=== PATIENT | female | born 2005 | race Caucasian/White ===

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

== ENCOUNTER 2024-02-09 14:02 | Emergency (ER) | payer OTHER, SELFPAY ==
[2024-02-09 14:27] VITALS: BP 134/58; PULSE 88; RESP 20; TEMP 36.6; O2SAT 98; BMI 42.3
== END 2024-02-09 16:52 | disposition left against medical advice (07) ==
PROVIDERS: Emergency Provider Emergency Medicine
DX: M79.10 Myalgia, unspecified site (principal)
CPT/HCPCS: 99281

== ENCOUNTER 2024-07-10 08:23 | Outpatient (AMB) | payer OTHER, SELFPAY ==
--- NOTE | 2024-07-10 08:58 | MHC.OFFWIV ---
Intake Vital Signs 07/10/24 09:05 Weight 230 lb BP 108/70 Blood Pressure Location Lt brachial Position Sitting Pulse 103 H Pulse Source Pulse Oximeter Temp 98.7 F Temp Source Oral Pulse Oximetry (%) 98 Oxygen Delivery Method Room Air Intake Visit Reasons: EP-cough, migraine, fever, chills Intake Note: Patient here for cough, SOB, chest pain, chills, fever and migraine that started about 1 week ago now. Patient Tobacco Use Status: Never used Tobacco Allergies No Known Allergies Allergy (Verified 07/10/24 08:58) Do you need a note to return to daycare/school/sports/work: Yes HPI HPI Comments History of Present Illness Details This is a 19-year-old female with no stated past medical history presenting for evaluation of cough, headaches, nausea, vomiting and body aches that she has had for the past 1 week. Patient has been taking DayQuil only without relief of her symptoms. Patient denies having any fevers, chest pain, shortness for breath or abdominal pain. REPLACED BY [facility] Medical History (Updated 07/10/24 @ 09:33 by Gwendolyn Mendez PA-C) Morbid obesity Back spasm Dysmenorrhea Depression Anxiety Obesity ADHD (attention deficit hyperactivity disorder), inattentive type STD (female) Surgical History Hx of tonsillectomy Family History Paternal Aunt Diabetes Mother Overdose Mental health disorder Substance use disorder Father Mental health disorder Social History Household Members: Other Household Members Other:: lives w/ dad, sibs, stepmother-who has ALS. dad overwhelmed w/her care&work Housing: House Alcohol intake: current Patient Tobacco Use Status: Never used Tobacco e-Cigarette/Vaping Use: Currently Using Substance Use Type: Marijuana service: No Current occupational status: unemployed Sexual orientation: Straight/Heterosexual Gender identity: Female Cognitive needs: No Hearing needs: No Vision needs: Yes Female Reproductive History Menstrual Age of Menarche: 10 Review of Systems Const All systems reviewed & are unremarkable except as noted in HPI and below Eyes Reports no additional complaints ENT Reports no additional complaints, Denies otalgia, Denies facial pain and Denies sinus pressure Card Reports no additional complaints, Denies chest pain and Denies dyspnea Resp Reports chest congestion, Reports cough and Denies dyspnea GI Reports no additional complaints Reports no additional complaints Musc Reports no additional complaints Skin/Breast Reports system reviewed and no additional complaints, except as documented Neuro Reports no additional complaints Psych Reports no additional complaints Endo Reports no additional complaints Adrián/Lymph Reports no additional complaints Aller/Immun Reports no additional complaints Physical Exam Vital Signs: Last Vital Signs Temp 98.7 F 07/10/24 09:05 Pulse 103 H 07/10/24 09:05 BP 108/70 07/10/24 09:05 Pulse Ox 98 07/10/24 09:05 Oxygen Delivery Method Room Air 07/10/24 09:05 Patient is afebrile and tachycardic Const General: cooperative, healthy appearing, no acute distress, alert, awake and Physically active Nutritional Appearance: obese Orientation/consciousness: patient oriented x3 Limitations: no limitations HEENT Head: Yes normal to inspection and Yes normocephalic Ears: hearing grossly normal bilaterally, external ears normal, TM's abnormal bilaterally (TMs bulging without erythema) and EAC's normal General nose exam: Normal external nose present Face and sinus: Yes normal facial exam and Yes sinuses nontender Mouth: Normal oral and palatal mucosa present and oropharynx normal Throat: Yes posterior oropharynx normal and Yes postnasal drainage Eyes General: appearance normal, both eyes and all related structures Neck Lymphatic: no lymphadenopathy noted Resp Effort & Inspection: normal respiratory effort, no audible wheezes, no cough and not tachypneic Auscultation: clear to auscultation bilaterally Cardio Rate: tachycardic Rhythm: regular rhythm Skin General skin exam: no rashes or lesions noted Neuro General: patient oriented x3 Psych Appearance: grossly normal Mental Status: mental status grossly normal Insight: Good insight present (Psych) Judgement: Good judgement present (Psych) Assessment & Plan Assessment & Plan (1) Acute upper respiratory infection: Comment: SARS panel is obtained and results are pending. Code(s): J06.9 - Acute upper respiratory infection, unspecified Plan: Mucinex OTC with increase clear fluids daily, Tylenol or ibuprofen as needed for myalgias. Orders: Orders SARS-CoV2/FLU/RSV Today J06.9 - Acute upper respiratory infection, unspecified Coding Level of Care Code Est Pt Level 3 (00500) Diagnoses Acute upper respiratory infection J06.9 Time Spent (min) 20
[2024-07-10 09:05] VITALS: BP 108/70; PULSE 103; TEMP 37.1; O2SAT 98
== END 2024-07-10 09:28 | disposition home or self-care (01) ==
PROVIDERS: Visit Provider Physician Assistant
DX: J06.9 Acute upper respiratory infection, unspecified (principal)

== ENCOUNTER 2024-07-10 08:23 | Outpatient (REF) | payer OTHER, SELFPAY ==
[2024-07-10 11:01] LABS: Influenza A PCR POSITIVE (Negative); Influenza B PCR NEGATIVE (Negative); Resp Syncy Virus RNA Qual PCR NEGATIVE (Negative); SARS COV2 PCR INHOUSE NEGATIVE (Negative)
--- OUTSIDE RECORDS SUMMARY | 2024-07-10 11:07 | XMS_ITS | Encounter Summary ---
Author Organization [facility] Address [address] [place] [address] Phone Care Team Providers Care Coagulator Name Role Phone William Ochoa MD Primary Care Provider [phone] Encounter Details Date Type Department Care Team (Late st Contact Info) Description 05/11/2011 Documentation [facility] [place] Family Medicine [address] [place] [address] Family Medicine, Physician [address] [place], [place] [phone] Social History Tobacco Use Types Packs/Day Years Used Date Smoking Tobacco: Never Assessed Comments Unknown Sex and Gender Information Value Date Recorded Sex Assigned at Not on file Legal Sex Female 4:39 PM EDT Gender Identity Not on file Sexual Orientation Not on file documented as of this encounter Plan of Treatment Not on file documented as of this encounter Visit Diagnoses Not on filedocumented in this encounter Care Teams Coagulator Relationship Specialty Start Date End Date William Ochoa MD [address] [place] [address] [place] [address] PCP - General 01/07/17 09/23/22 documented as of this encounter
--- OUTSIDE RECORDS SUMMARY | 2024-07-10 11:07 | XMS_ITS | Encounter Summary ---
Author Organization [facility] Address [address] [place] [address] Phone Care Team Providers Care Programmer Analyst Consultant Name Role Phone William Ochoa MD Primary Care Provider [phone] Encounter Details Date Type Department Care Team (Late st Contact Info) Description 11/10/2010 Documentation [facility] [address] [place] [address] Family Medicine, Physician [address] [place], [place] [phone] Social History Tobacco Use Types Packs/Day Years [...] on filedocumented in this encounter Care Teams Programmer Analyst Consultant Relationship Specialty Start Date End Date William Ochoa MD [address] [place] [address] [place] [address] PCP - General 01/07/17 09/23/22 documented as of this encounter
--- OUTSIDE RECORDS SUMMARY | 2024-07-10 11:07 | XMS_ITS | Encounter Summary ---
Author Organization [facility] Address [address] [place] [address] Phone Care Team Providers Care Lift Team Technician Name Role Phone William Ochoa MD Primary Care Provider [phone] Encounter Details Date Type Department Care Team (Late st Contact Info) Description 11/10/2010 Documentation [facility] [address] [place] [address] Family Medicine, Physician [address] [place], [place] [phone] Social History Tobacco Use Types Packs/Day Years [...] on filedocumented in this encounter Care Teams Lift Team Technician Relationship Specialty Start Date End Date William Ochoa MD [address] [place] [address] [place] [address] PCP - General 01/07/17 09/23/22 documented as of this encounter
--- OUTSIDE RECORDS SUMMARY | 2024-07-10 11:07 | XMS_ITS | Encounter Summary ---
Author Organization [facility] Address [address] [place] [address] Phone Care Team Providers Care Lunchroom Worker Name Role Phone William Ochoa MD Primary Care Provider [phone] Encounter Details Date Type Department Care Team (Late st Contact Info) Description 05/11/2011 Documentation [facility] [place] [address] [place] [address] Family Medicine, Physician [address] [place], [place] [phone] Social History Tobacco Use Types Packs/Day Years [...] on filedocumented in this encounter Care Teams Lunchroom Worker Relationship Specialty Start Date End Date William Ochoa MD [address] [place] [address] [place] [address] PCP - General 01/07/17 09/23/22 documented as of this encounter
--- OUTSIDE RECORDS SUMMARY | 2024-07-10 11:07 | XMS_ITS | Encounter Summary ---
Author Organization [facility] Address [address] [place] [address] Phone Care Team Providers Care Painter Helper Name Role Phone William Ochoa MD Primary Care Provider [phone] Encounter Details Date Type Department Care Team (Late st Contact Info) Description 2017 Conversion Encounter [facility] [address] [place] [address] Social History Tobacco Use Types Packs/Day Years [...] on filedocumented in this encounter Care Teams Painter Helper Relationship Specialty Start Date End Date William Ochoa MD [address] [place] [address] PCP - General 01/07/17 09/23/22 documented as of this encounter
--- OUTSIDE RECORDS SUMMARY | 2024-07-10 11:07 | XMS_ITS | Encounter Summary ---
Author Organization [facility] Address [address] [place] [address] Phone Care Team Providers Care Feeder Associate Name Role Phone William Ochoa MD Primary Care Provider Encounter Details Date Type Department Care Team (Late st Contact Info) Description 06/30/2011 Documentation [facility] [place] [address] [place] [address] Family Medicine, Physician [address] [place], [place] [phone] Social History Tobacco Use Types Packs/Day Years [...] on filedocumented in this encounter Care Teams Feeder Associate Relationship Specialty Start Date End Date William Ochoa MD [address] [place] [address] [place] [address] PCP - General 01/07/17 09/23/22 documented as of this encounter
--- OUTSIDE RECORDS SUMMARY | 2024-07-10 11:07 | XMS_ITS | Encounter Summary ---
Author Organization [facility] Address [address] [place] [address] Phone Care Team Providers Care Security Flex Officer Name Role Phone William Ochoa MD Primary Care Provider [phone] Encounter Details Date Type Department Care Team (Late st Contact Info) Description 11/10/2010 Documentation [facility] [address] [place] [address] Family Medicine, Physician [address] [place], [place] [phone] Social History Tobacco Use Types Packs/Day Years [...] on filedocumented in this encounter Care Teams Security Flex Officer Relationship Specialty Start Date End Date William Ochoa MD [address] [place] [address] [place] [address] PCP - General 01/07/17 09/23/22 documented as of this encounter
--- OUTSIDE RECORDS SUMMARY | 2024-07-10 11:07 | XMS_ITS | Encounter Summary ---
Author Organization [facility] Address [address] [place] [address] Phone Care Team Providers Care Radio Disc Jockey Name Role Phone William Ochoa MD Primary Care Provider [phone] Encounter Details Date Type Department Care Team (Late st Contact Info) Description 05/11/2011 Documentation [facility] [place] Family Medicine [address] [place] [address] Family Medicine, Physician [address] [place], [place] [phone] Social History Tobacco Use Types Packs/Day Years [...] on filedocumented in this encounter Care Teams Radio Disc Jockey Relationship Specialty Start Date End Date William Ochoa MD [address] [place] [address] [place] [address] PCP - General 01/07/17 09/23/22 documented as of this encounter
--- OUTSIDE RECORDS SUMMARY | 2024-07-10 11:07 | XMS_ITS | Clinical Summary ---
Author Organization [facility] Address [address] [place] [address] Phone Care Team Providers Care Hydrometer Calibrator Name Role Phone Unavailable Primary Care Provider Unavailabl e Immunizations Immunization Administration Dates Next Due DTaP / Hep B / IPV 2004,2004, 004 DTaP 5 09/17/2008,07/30/2005 H1N1 03/24/2009 Hep B, ped/adol 2004 Hib (HbOC) 04/19/2005,2004,2004 ,2004 IPV 09/17/2008 Influenza Split 03/10/2010,01/19/2010 Influenza, injectable, trivalent 06/24/2008,12/0 08/2006,04/19/2005 MMR 09/17/2008,01/15/2005 Pneumococcal Conjugate 04/19/2005,2004,,2004 Varicella 09/17/2008,01/15/2005 Family History Relation Name Status Comments Brother Alive Brother: Alive and well Father Alive Father: Alive a nd well Maternal Grandfather Materna l grandfather: vit k deficency Maternal Grandmother Materna l grandmother: Hypertension, Obesity, thyroid disease Mother Alive Mother: d 2009, OD'ed Paternal Grandmother Paterna l grandmother: Depression Sister Alive Sister: Alive a nd well Social History Tobacco Use Types Packs/Day Years Used Date Smoking Tobacco: Never Assessed Comments Unknown Sex and Gender Information Value Date Recorded Sex Assigned at Not on file Legal Sex Female 4:39 PM EDT Gender Identity Not on file Sexual Orientation Not on file Last Filed Vital Signs Vital Sign Reading Time Taken Comments Blood Pressure 94/60 06/24/2011 12:00 AM EST Pulse - - Temperature 36.9 ??C (98.4 ??F) 05/14/2011 12:[address] Respiratory Rate - - Oxygen Saturation - - Inhaled Oxygen Concentration - - Weight 46.5 kg (102 lb 8 oz) 06/24/2011 12:00 AM EST Height 131.6 cm (4' 3.8 ) 06/24/2011 12:00 AM ES T Body Mass Index 26.86 06/24/2011 12:00 AM EST Plan of Treatment Health Maintenance Due Date Last Done Comments DTaP,Tdap,and Td Vaccines (6 - Tdap) 01/12/2015 09/17/2008, 07/30/2005, 2004, Additional history exists HPV Vaccines (1 - 3-dose series) 01/12/2019 Men B Vaccine (1 of 2 - Standard) 2020 Influenza Vaccines (#1) 2023 03/10/20, 01/19/2010, 06/24/2008, Additional history exists COVID-19 Vaccine ( season) 2024 Hepatitis B Vaccines Completed 2004, 2004, 2004, Additional history exists HIB Vaccines Completed 04/19/2005, 07/01, 2004, Additional history exists Pneumococcal Vaccine Completed 04/19/2005, 2004, 2004, Additional history exists IPV Vaccines Completed 09/17/2008, 07/01, 2004, Additional history exists MMR Vaccines Completed 09/17/2008, 01/15/2005 Varicella Vaccines Completed 09/17/2008, 01/15/2005 Hepatitis A Vaccines Aged Out No long er eligible based on patient's age to complete this topic Meningococcal Vaccine Aged Out No sherri shae eligible based on patient's age to complete this topic
--- OUTSIDE RECORDS SUMMARY | 2024-07-10 11:07 | XMS_ITS | Encounter Summary ---
Author Organization [facility] Address [address] [place] [address] Phone Care Team Providers Care Customer Acquisition Manager Name Role Phone William Ochoa MD Primary Care Provider [phone] Encounter Details Date Type Department Care Team (Late st Contact Info) Description 01/26/2011 Documentation [facility] [address] [place] [address] Family Medicine, Physician [address] [place], [place] [phone] Social History Tobacco Use Types Packs/Day Years [...] on filedocumented in this encounter Care Teams Customer Acquisition Manager Relationship Specialty Start Date End Date William Ochoa MD [address] [place] [address] [place] [address] PCP - General 01/07/17 09/23/22 documented as of this encounter
--- OUTSIDE RECORDS SUMMARY | 2024-07-10 11:07 | XMS_ITS | Encounter Summary ---
Author Organization [facility] Address [address] [place] [address] Phone Care Team Providers Care College Director Name Role Phone William Ochoa MD Primary Care Provider [phone] Encounter Details Date Type Department Care Team (Late st Contact Info) Description 04/14/2011 Documentation [facility] [address] [place] [address] Family Medicine, Physician [address] [place], [place] [phone] Social History Tobacco Use Types Packs/Day Years [...] on filedocumented in this encounter Care Teams College Director Relationship Specialty Start Date End Date William Ochoa MD [address] [place] [address] [place] [address] PCP - General 01/07/17 09/23/22 documented as of this encounter
--- OUTSIDE RECORDS SUMMARY | 2024-07-10 11:08 | XMS_ITS | Encounter Summary ---
Author Organization [facility] Address [address] [place] [address] Phone Care Team Providers Care Rate Inserter Name Role Phone William Ochoa MD Primary Care Provider [phone] Encounter Details Date Type Department Care Team (Late st Contact Info) Description 11/23/2010 Documentation [facility] [address] [place] [address] Family Medicine, Physician [address] [place], [place] [phone] Social History Tobacco Use Types Packs/Day Years [...] on filedocumented in this encounter Care Teams Rate Inserter Relationship Specialty Start Date End Date William Ochoa MD [address] [place] [address] [place] [address] PCP - General 01/07/17 09/23/22 documented as of this encounter
== END 2024-07-10 08:24 | disposition home or self-care (01) ==
LOC: HO.LNP 08:23
PROVIDERS: Visit Provider Physician Assistant
DX: J06.9 Acute upper respiratory infection, unspecified (principal)
CPT/HCPCS: 0241U; 99212

== ENCOUNTER 2024-09-30 05:13 | Emergency (ER) | payer OTHER, SELFPAY ==
[2024-09-30 05:29] VITALS: BP 133/74; PULSE 99; RESP 20; TEMP 36.2; O2SAT 97; BMI 35.5
--- OUTSIDE RECORDS SUMMARY | 2024-09-30 07:42 | XMS_ITS | Encounter Summary ---
Author Organization [facility] Address [address] [place] [address] Phone Care Team Providers Care Insurance Agent Name Role Phone William Ochoa MD Primary Care Provider Massiel jeronimo Encounter Details Date Type Department Care Team (Late st Contact Info) Description 05/11/2011 Documentation [facility] [address] [place], [place] [phone] Family Medicine, Physician [address] [place] [address] Social History Tobacco Use Types Packs/Day Years [...] on filedocumented in this encounter Care Teams Insurance Agent Relationship Specialty Start Date End Date William Ochoa MD PCP - General 01/07/17 09/23/22 documented as of this encounter
--- OUTSIDE RECORDS SUMMARY | 2024-09-30 07:42 | XMS_ITS ---
Author Organization [facility] Address [address] [phone] Care Team Providers Care Rn Endocrinology Name Role Phone ALVERTO LOTT Unavailable [phone] Allergies No Known Allergies Results Component Value Reference Range Notes Test, Urine Reviewed date:08/17/2024 04:56:07 PM Interpretation:Negative Performing Lab: Notes/Report: Negative Test, Urine Negative Lot # [id number] Exp. Date 02/19/2025 Urinalysis Reviewed date:08/20/2024 12:08:16 PM Interpretation:Normal Performing Lab: Notes/Report: Normal Leukocytes - Nitrates - Uro 0.2 Protein 15 pH 5.5 Blood - Spec [place] 1.030 Ketones 5 Bilirubin - Glucose - REASON FOR VISIT STI Screen (No Symptoms) Medications Medication SIG (Take, Route, Frequency, Duration) Notes Start Date End Date Status Vyvanse Active Lexapro Active Social History Sex Assigned At : Social History Observation Description Sex Assigned At Female Vital Signs Blood pressure systolic 102 mm Hg 08/18/19 25 Blood pressure diastolic 64 mm Hg 025 Height 5ft in 08/17/2024 Weight 204 lbs 08/17/2024 BMI 39.84 kg/m2 08/17/2024 Encounters Encounter Location Date Provider Diagnosis [address] [phone] 08/17/2024 ALVERTO LOTT Encounter for scre ening for infections with a predominantly sexual mode of transmission Z11.3 ; Counseling, unspecified Z71.9 ; Other problems related to lifestyle Z72.89 ; test, result negative Z32.02 and Dysuria R30.0 Assessments Encounter Date Diagnosis (ICD Code) Assessment Notes Treatment Notes Treatment Clinical Notes Section Notes 08/17/2024 Encounter for screening for infections with a predominantly sexual mode of transmission (ICD-10 - Z11.3) 08/17/2024 Counseling, unspecified (ICD-10 - Z71.9) 08/17/2024 Other problems related to lifestyle (ICD-10 - Z72.89) 08/17/2024 test, result negative (ICD-10 - Z32.02) 08/17/2024 Dysuria (ICD-10 - R30.0) Plan Of Treatment Next Appt Details Follow Up: prn, Reason: Progress Notes * ALBERTOHERACLIO RafaelaDOB:2005 (19 yo F)Acc No.[id number]:08/17/2024 Progress Notes Patient:?Rafaela BAKER Provider:?ALVERTO LOTT :2005???Age:19 Y???Sex:Female D ate:08/17/2024 Address:[address] [place], [place] [id number] Subjective: * Chief Complaints: * ???STI Screen (No Symptoms) * HPI: ???Visit Narrative:? CLT NOT ABLE TO STAY TO SEE PROVIDER. WILL DO TELEHEALTH VISIT TOMORROW. URINE PT AND UA DONE IN PREPERATION OF VISIT AND CURRENT CONCERNS. ?Reason for the visit:?routine testing?.?Current form of control:?condoms sometimes-? ivette plan b to pharmacy?.?Presenting Symptoms:?painful urination?.?LMP:?07/09.?Last date of UPI:?08/16.? * Medical History:? * Prn Physical Therapist History:? control:?oral contraceptive pill.?Last menstrual period:?07/09.?Last pap smear date:?not of age per protocol.?Menarche: ?Age of menarche?9 ???Sexual activity:?currently sexually active, with men.?Unprotected sex in the last 5 days?:?no.?Unprotected sex in the past 10 days?:?yes.? * OB History:?Total pregnancies:?0.? * Surgical History:?Denies Pas t Surgical History * Hospitalization/Major Diagno stic Procedure:?Denies Past Hospitalization * Family History:? No known family history. * Social History:?Food Access:?Food Access?The Client's current access to food is?Secure Food Access ???Housing:?Housing?The client's current living situation is:?stable housing ???Reproductive Life Plan:?Reproductive Life Plan?Do you want to have children??Yes, I want to have children ?How long would you like to wait until you/your partner becomes ??not sure ?How sure are you that you will be able to use your control method without any problems??Not sure ???Sexual History:?Sexual History?Sexual History Reviewed:?Partners, Practices, Protection/Past STIs ?Currently sexually active??Yes ?Sexually active with:?Men ?Number of male partners?1 ?Your sexual activities include:?oral intercourse, vaginal intercourse ?Do you use condoms??No ?Date of last unprotected intercourse:?02/25/2024 ?Number of partners in past 3 months:?7 ?Number of partners in past year:?11 ?Does your partner(s) currently have any STIs??No ???HIV Risk Assessment:?Additional Questions?Is an HIV Risk Assessment being conducted??Yes ?Have you been tested for HIV before??Yes ???PrEP for HIV:?PrEP for HIV?Is the client interested in beginning/continuing PrEP for HIV??No ???Relationships:?Relationships?Has the client experienced any of the following:?Client has never experienced harmful relationships ???Human Trafficking:?Human Trafficking?Experienced:?No ???Tobacco Use:?Tobacco Use?Do you/have you used tobacco??Yes, currently vape ?Tobacco Smoking Status?Current every day smoker ???Drugs/Alcohol:?Drug/Alcohol Use?Do you or have you used drugs??Yes, currently ?By what route are you taking drugs? Please check all that apply:?Smoking ?Which drug(s) do you smoke??Marijuana ?Do you or have you used alcohol??Yes, currently ???Counseling Provided:?Counseling Provided?Please indicate the length of time, in minutes, that counseling was provided.?8 ?Counseling Was Provided By:?manju * Medications:?TakingLexapro V yvanse Taking Lexapro Taking Vyvanse DiscontinuedMetroGel-Vaginal 0.75 % Gel 1 application at bedtime Vaginal Once a day Medication List reviewed and reconciled with the patientDiscontinued MetroGel- Vaginal 0.75 % Gel 1 application at bedtime Vaginal Once a day Medication List reviewed and reconciled with the patient * Allergies:?N.K.D.A.no[Allerg ies Verified] Objective: * Vitals:?BP:102/64mm Hg, Ht: 5ft, Wt:204lbs, BMI:39.84Index, Ht-cm: 152.4, Wt-k.53. * Examination: ???General Examination: ?GENERAL APPEARANCE:?pleasant, in no acute distress.?PSYCH:?alert, oriented.? Assessment: * Assessment: 1.?Encounter for screening f or infections with a predominantly sexual mode of transmission - Z11.3 (Primary)???2.?Counseling, unspecified - Z71.9???3.?Other problems related to lifestyle - Z72.89???4.? test, result negative - Z32.02???5.?Dysuria - R30.0??? Plan: * Treatment: ? Value Reference Range ? Test, Urine Negative * ?Lot # [id number] * ?Exp. Date 02/19/2025 2.?Dysuria?LAB: Urinalysis (Collection Date & Time - 08/17/2024)* ? Value Reference Range ?Leukocytes - * ?Nitrates - * ?Uro 0.2 * ?Protein 15 * ?pH 5.5 * ?Blood - * ?Spec [place] 1.030 * ?Ketones 5 * ?Bilirubin - * ?Glucose - * This lab was reviewed by ARELI ABERNATHY on 08/20/2024 at 12:08 PM EDT * Procedure Codes:?56722 Pregn niki, [id number] Urine Dipstick * Follow Up:?prn * Billing Information: * Visit Code:? 66498 Existing - Counseling (IN USE). * Procedure Codes:? 35918 , Urine. 95087 Urine Dipstick. * Sign off status: Completed true * Provider:CRISTA LOTT Date:?08/17/2024 Generated for Angeli buenrostro/Lance/eTransmitting on:?09/30/2024 07:42 AM EDT History and Physical Notes * HPI (History of Present Illness) Category Sub-Category Detail Notes Category Not es Visit Narrative Reason for the visit: routine testing Current form of control: condoms s ometimes- ivette plan b to pharmacy Presenting Symptoms: painful urination LMP: 07/09 Last date of UPI: 08/16 Examination Category Sub-Category Detail Notes Category Not es General Examination GENERAL APPEARANCE: pleasant, in n o acute distress PSYCH: alert, oriented
--- OUTSIDE RECORDS SUMMARY | 2024-09-30 07:42 | XMS_ITS | Encounter Summary ---
Author Organization [facility] Address [address] [place] [address] Phone Care Team Providers Care Printing Plate Clerk Name Role Phone William Ochoa MD Primary Care Provider Massiel jeronimo Encounter Details Date Type Department Care Team (Late st Contact Info) Description 05/11/2011 Documentation [facility] Family [facility] [address] [place], [place] [phone] Family Medicine, Physician [address] [place] [address] Social History Tobacco Use Types Packs/Day Years [...] on filedocumented in this encounter Care Teams Printing Plate Clerk Relationship Specialty Start Date End Date William Ochoa MD PCP - General 01/07/17 09/23/22 documented as of this encounter
--- OUTSIDE RECORDS SUMMARY | 2024-09-30 07:42 | XMS_ITS | Encounter Summary ---
Author Organization [facility] Address [address] [place] [address] Phone Care Team Providers Care Speech Lang Path Therapist Name Role Phone William Ochoa MD Primary Care Provider Massiel jeronimo Encounter Details Date Type Department Care Team (Late st Contact Info) Description 11/10/2010 Documentation [facility] [address] [place], [place] [phone] Family Medicine, Physician [address] [place] [address] Social History Tobacco Use Types Packs/Day Years [...] on filedocumented in this encounter Care Teams Speech Lang Path Therapist Relationship Specialty Start Date End Date William Ochoa MD PCP - General 01/07/17 09/23/22 documented as of this encounter
--- OUTSIDE RECORDS SUMMARY | 2024-09-30 07:42 | XMS_ITS ---
Author Organization [facility] Address [address] [place] [phone] Care Team Providers Care Deputy Administrator Name Role Phone ALVERTO LOTT Unavailable [phone] REASON FOR VISIT Infection Screening Medications Medication SIG (Take, Route, Frequency, Duration) Notes Start Date End Date Status Lexapro Active Vyvanse Active Mony 30 MG as directed Orally M ay be used upto 5 days after sex as needed for 1 08/17/2024 A ctive Social History Sex Assigned At : Social History Observation Description Sex Assigned At Female Encounters Encounter Location Date Provider Diagnosis [place] [address] [place], [place] [phone] 08/18/2024 ALVERTO LOTT Plan Of Treatment No Information Progress Notes * Rafaela BAKERDOB:2005 (19 yo F)Acc No.[id number]:08/18/2024 Patient:?OLIVIA Rafaela Provider:CRISTA LOTT :2005???Age:19 Y???Sex:Female D ate:08/18/2024 Address:[address] [place] [address] [facility] [place] [id number] Subjective: * Chief Complaints: * ???1. Infection Screening. * Medical History:? * Medications:?Taking Lexapro , Taking Vyvanse , Taking Mony 30 MG Tablet as directed Orally May be used upto 5 days after sex as needed Objective: * Vitals:? Assessment: Plan: * Treatment: * Billing Information: * Visit Code:? * Procedure Codes:? * Electronic signature of STEVE LOTT CNM on 09/30/2024 at 07:42 AM EDT Sign off status: Pending * Provider:CRISTA LOTT Date:?08/18/2024 Generated for Angeli buenrostro/Lance/Adolph on:?09/30/2024 07:42 AM EDT
--- OUTSIDE RECORDS SUMMARY | 2024-09-30 07:42 | XMS_ITS | Encounter Summary ---
Author Organization [facility] Address [address] [place] [address] Phone Care Team Providers Care Race Relations Professor Name Role Phone William Ochoa MD Primary Care Provider Massiel jeronimo Encounter Details Date Type Department Care Team (Late st Contact Info) Description 05/11/2011 Documentation [facility] Family Medicine [address] [place], [place] [phone] Family Medicine, Physician [address] [place] [address] Social History Tobacco Use Types Packs/Day Years [...] on filedocumented in this encounter Care Teams Race Relations Professor Relationship Specialty Start Date End Date William Ochoa MD PCP - General 01/07/17 09/23/22 documented as of this encounter
--- OUTSIDE RECORDS SUMMARY | 2024-09-30 07:42 | XMS_ITS | Encounter Summary ---
Author Organization [facility] Address [address] [place] [address] Phone Care Team Providers Care Judicial Law Clerk Name Role Phone William Ochoa MD Primary Care Provider Massiel jeronimo Encounter Details Date Type Department Care Team (Late st Contact Info) Description 01/26/2011 Documentation [facility] [address] [place], [place] [phone] Family Medicine, Physician [address] [place] [address] Social History Tobacco Use Types Packs/Day Years [...] on filedocumented in this encounter Care Teams Judicial Law Clerk Relationship Specialty Start Date End Date William Ochoa MD PCP - General 01/07/17 09/23/22 documented as of this encounter
--- OUTSIDE RECORDS SUMMARY | 2024-09-30 07:42 | XMS_ITS | Encounter Summary ---
Author Organization [facility] Address [address] [place] [address] Phone Care Team Providers Care Hair Blender Name Role Phone William Ochoa MD Primary Care Provider Masisel jeronimo Encounter Details Date Type Department Care Team (Late st Contact Info) Description 04/14/2011 Documentation [facility] Family Medicine [address] [place], [place] [phone] Family Medicine, Physician [address] [place] [address] Social History Tobacco Use Types Packs/Day Years [...] on filedocumented in this encounter Care Teams Hair Blender Relationship Specialty Start Date End Date William Ochoa MD PCP - General 01/07/17 09/23/22 documented as of this encounter
--- OUTSIDE RECORDS SUMMARY | 2024-09-30 07:42 | XMS_ITS | Encounter Summary ---
Author Organization [facility] Address [address] [place] [address] Phone Care Team Providers Care Computer Customer Support Specialist Name Role Phone William Ochoa MD Primary Care Provider Massiel jeronimo Encounter Details Date Type Department Care Team (Late st Contact Info) Description 11/10/2010 Documentation [facility] [address] [place], [place] [phone] Family Medicine, Physician [address] [place] [address] Social History Tobacco Use Types Packs/Day Years [...] on filedocumented in this encounter Care Teams Computer Customer Support Specialist Relationship Specialty Start Date End Date William Ochoa MD PCP - General 01/07/17 09/23/22 documented as of this encounter
--- OUTSIDE RECORDS SUMMARY | 2024-09-30 07:42 | XMS_ITS | Encounter Summary ---
Author Organization [facility] Address [address] [place] [address] Phone Care Team Providers Care Knotting Machine Operator Portable Name Role Phone William Ochoa MD Primary Care Provider Massiel jeronimo Encounter Details Date Type Department Care Team (Late st Contact Info) Description 11/10/2010 Documentation [facility] [address] [place], [place] [phone] Family Medicine, Physician [address] [place] [address] Social History Tobacco Use Types Packs/Day Years [...] on filedocumented in this encounter Care Teams Knotting Machine Operator Portable Relationship Specialty Start Date End Date William Ochoa MD PCP - General 01/07/17 09/23/22 documented as of this encounter
--- OUTSIDE RECORDS SUMMARY | 2024-09-30 07:42 | XMS_ITS | Encounter Summary ---
Author Organization [facility] Address [address] [place] [phone] Phone Care Team Providers Care Painter Helper Spray Name Role Phone William Ochoa MD Primary Care Provider Massiel jeronimo Encounter Details Date Type Department Care Team (Late st Contact Info) Description 11/23/2010 Documentation [facility] [address] [place], [place] [phone] Family Medicine, Physician [address] [place] [address] Social History Tobacco Use Types Packs/Day Years [...] in this encounter Care Teams Painter Helper Spray Relationship Specialty Start Date End Date William Ochoa MD PCP - General 01/07/17 09/23/22 documented as of this encounter
--- OUTSIDE RECORDS SUMMARY | 2024-09-30 07:42 | XMS_ITS | Encounter Summary ---
Author Organization [facility] Address [address] [place] [address] Phone Care Team Providers Care Die Stamping Press Operator Name Role Phone William Ochoa MD Primary Care Provider Massiel jeronimo Encounter Details Date Type Department Care Team (Late st Contact Info) Description 06/30/2011 Documentation [facility] Family Medicine [address] [place], [place] [phone] Family Medicine, Physician [address] [place] [address] Social History Tobacco Use Types Packs/Day Years [...] on filedocumented in this encounter Care Teams Die Stamping Press Operator Relationship Specialty Start Date End Date William Ochoa MD PCP - General 01/07/17 09/23/22 documented as of this encounter
--- OUTSIDE RECORDS SUMMARY | 2024-09-30 07:42 | XMS_ITS | Encounter Summary ---
Author Organization [facility] Address [address] [place] [address] Phone Care Team Providers Care Sharepoint Architect Name Role Phone William Ochoa MD Primary Care Provider Massiel jeronimo Encounter Details Date Type Department Care Team (Late st Contact Info) Description 2017 Conversion Encounter [facility] - [address] [address] Social History Tobacco Use Types Packs/Day Years [...] on filedocumented in this encounter Care Teams Sharepoint Architect Relationship Specialty Start Date End Date William Ochoa MD PCP - General 01/07/17 09/23/22 documented as of this encounter
--- OUTSIDE RECORDS SUMMARY | 2024-09-30 07:42 | XMS_ITS | Clinical Summary ---
Author Organization [facility] Address [address] [place] [phone] Phone Care Team Providers Care Medical Transcription Supervisor Name Role Phone Unavailable Primary Care Provider [...]
--- OUTSIDE RECORDS SUMMARY | 2024-09-30 07:43 | XMS_ITS | Patient Health Record ---
Author Organization [facility] Address [address] [place] [address] [id number] Care Team Providers Care Sizing Machine Tender Name Role Phone МАРИНА BELL Unavailable [phone] ALVERTO LOTT Unavailable [phone] Allergies No Known Allergies Results Component Value Reference Range Notes Test, Urine Reviewed date:08/17/2024 04:56:07 PM Interpretation:Negative Performing Lab: Notes/Report: Negative Test, Urine Negative Lot # [id number] Exp. Date 02/19/2025 Urinalysis Reviewed date:08/20/2024 12:08:16 PM Interpretation:Normal Performing Lab: Notes/Report: Normal Leukocytes - Nitrates - Uro 0.2 Protein 15 pH 5.5 Blood - Spec [place] 1.030 Ketones 5 Bilirubin - Glucose - Test, Urine Reviewed date:02/29/2024 11:20:43 AM Interpretation:Negative Performing Lab: Notes/Report: Negative Test, Urine neg Lot # [id number] Exp. Date 11/29/[address]/NG, Urine Reviewed date:03/08/2024 01:24:09 PM Interpretation:Negative Performing Lab:[facility], [address], [place], [address] Francisco Javier Clark DO Notes/Report: GONORRHEA, AMPLIFIED NEGATIVE NEGATIVE CHLAMYDIA, AMPLIFIED NEGATIVE NEGATIVE DNA Test Results SEX: F : 2005 AGE: 19 [id number] CLINIC ID: [id number] SS: PHYSICIAN: ALVERTO LOTT COLLECTED BY: [id number] Specimen Source: Urine Specimen Type: Urine, Umang PCR Medium Neisseria gonorrhoeae: NEGATIVE Normal Value: Negative Chlamydia trachomatis: NEGATIVE Normal Value: Negative Test, Urine Reviewed date:03/02/2024 02:16:37 PM Interpretation:Negative Performing Lab: Notes/Report: Negative Test, Urine Negative Lot # [id number] Exp. Date 11/29/[address]/NG, Throat /Pharyngeal Reviewed date:03/08/2024 04:43:19 PM Interpretation:Negative Performing Lab:[facility], [facility], [place], [address] Francisco Javier Clark, Notes/Report: GONORRHEA, AMPLIFIED NEGATIVE NEGATIVE CHLAMYDIA, AMPLIFIED NEGATIVE NEGATIVE DNA Test Results SEX: F : 2005 AGE: 19 [id number] CLINIC ID: [id number] SS: PHYSICIAN: ALVERTO LOTT CNM COLLECTED BY: [id number] Specimen Source: Throat/Pharyngeal Specimen Type: Swab, Umang PCR Medium Neisseria gonorrhoeae: NEGATIVE Normal Value: Negative Chlamydia trachomatis: NEGATIVE Normal Value: Negative FSH-[id number] Reviewed date:03/06/2024 11:23:00 AM Interpretation:7, Normal Performing Lab:[facility], [address] [place] [address], Phone - [phone], Director - June Notes/Report: FSH 7.0 Adult Female Range Follicular phase 3.5 - 12.5 Ovulation phase 4.7 - 21.5 Luteal phase 1.7 - 7.7 Postmenopausal 25.8 - 134.8 Prolactin-[id number] Reviewed date:03/06/2024 11:23:23 AM Interpretation:10.1, Normal Performing Lab:[facility], [address] [place] [address], Phone - [phone], Director - June Notes/Report: Prolactin 10.1 4.8-33.4 ng/mL Estradiol-056838 Reviewed date:03/14/2024 04:50:04 PM Interpretation:62 Performing Lab:[facility] [address], [address] [place] [address], [place], Phone - [phone], Director - June Notes/Report: Estradiol 62.0 Adult Female Range Follicular phase 12.5 - 166.0 Ovulation phase 85.8 - 498.0 Luteal phase 43.8 - 211.0 Postmenopausal <6.0 - 54.7 1st trimester 215.0 - >4300.0 Alycia ECLIA methodology HBsAg Screen-[id number] Reviewed date:03/06/2024 11:20:57 AM Interpretation:Negative Performing Lab:[facility] [place], [address], [address], [employer], Phone - [phone], Director - [facility] Notes/Report: HBsAg Screen Negative Negative Hepatitis B Surf Ab Quant-00 6530 Reviewed date:03/06/2024 11:21:16 AM Interpretation:Immune Performing Lab:[facility] [address], [address], [address], [place], Phone - [phone], Director - [facility] Notes/Report: Hepatitis B Surf Ab Quant 97.7 Immunity>10 mIU /mL Status of Immunity Anti-HBs Level Inconsistent with Immunity 0.0 - 10.0 Consistent with Immunity >10.0 Testosterone, Total, LC/MS-0 37754 Reviewed date:03/14/2024 04:47:20 PM Interpretation:32 Normal Performing Lab:[facility], [address] [place] [address], Phone - [phone], Director - [facility] Notes/Report: Test(s) 744773-97-CJ Progesterone LCMS was developed and its performance characteristics determined by [facility]. It has not been cleared or approved by the Food and Drug Administration. Testosterone, Total, LC/MS 32 This test was developed and its performance characteristics determined by [facility]. It has not been cleared or approved by the Food and Drug Administration. Reference Range: Adult Females Premenopausal 10 - 55 Postmenopausal 7 - 40 17-OH Progesterone LCMS-0700 85 Reviewed date:03/14/2024 09:20:24 AM Interpretation:34 Normal Performing Lab:[facility], [address] [place] [address], Phone - [phone], Director - [facility] Notes/Report: Test(s) 618126-34-FX Progesterone LCMS was developed and its performance characteristics determined by [facility]. It has not been cleared or approved by the Food and Drug Administration. 17-OH Progesterone LCMS 34 Adult Female Follicular 15 - 70 Luteal 35 - 290 Sex Horm Binding Glob, Serum -[id number] Reviewed date:03/14/2024 04:47:10 PM Interpretation:26 Performing Lab:[facility], [address], [place], Phone - [phone], Director - [facility] Notes/Report: Sex Horm Binding Glob, Serum 26.0 24.6-122.0 n mol/L T pallidum Screening [place] -[id number] Reviewed date:03/06/2024 11:21:45 AM Interpretation:Negative Performing Lab:[facility], [address], [employer], Phone - [phone], Director - [facility] Notes/Report: T pallidum Antibodies Non Reactive Non Reactive HIV Ab/p24 Ag with Reflex-08 3935 Reviewed date:03/06/2024 11:21:36 AM Interpretation:Negative Performing Lab:[facility], [address], [employer], Phone - [phone], Director - [facility] Notes/Report: HIV Ab/p24 Ag Screen Non Reactive Non Reactive HIV-1/HIV-2 antibodies and HIV-1 p24 antigen were NOT detected. There is no laboratory evidence of HIV infection. HIV Negative NuSwab VG+, Alesia 6sp-1800 68 Reviewed date:03/06/2024 11:12:14 AM Interpretation:BV Positive Performing Lab:[facility], [address] [place] [address], [place], Phone - [phone], Director - [facility] Notes/Report: Test(s) 531784- Atopobium vaginae; 265515- BVAB 2; 094654- Megasphaera 1 was developed and its performance characteristics determined by [facility]. It has not been cleared or approved by the Food and Drug Administration. Test(s) 585109-Gexjmlo albicans, ADEOLA; 855466-Bgstpmp glabrata, ADEOLA; 161897-A parapsilosis/tropicalis; 546932-Ljabtkr lusitaniae, ADEOLA; 180367-Gvbwuqg krusei, ADEOLA was developed and its performance characteristics determined by [facility]. It has not been cleared or approved by the Food and Drug Administration. Atopobium vaginae High - 2 BVAB 2 High - 2 Megasphaera 1 High - 2 Calculate total score by adding the 3 individual bacterial vaginosis (BV) marker scores together. Total score is interpreted as follows: Total score 0-1: Indicates the absence of BV. Total score 2: Indeterminate for BV. Additional clinical data should be evaluated to establish a diagnosis. Total score 3-6: Indicates the presence of BV. Alesia albicans, ADEOLA Negative Negative Alesia glabrata, ADEOLA Negative Negative C parapsilosis/tropicalis Negative Negative Th is assay does not differentiate C. tropicalis and C. parapsilosis. Alesia lusitaniae, ADEOLA Negative Negative Alesia krusei, ADEOLA Negative Negative Trich vag by ADEOLA Negative Negative Chlamydia trachomatis, ADEOLA Negative Negative Neisseria gonorrhoeae, ADEOLA Negative Negative HCV Antibody-936829 Reviewed date:03/06/2024 11:21:27 AM Interpretation:Negative Performing Lab:[facility], [facility] [address], [address], [place], Phone - [phone], Director - [facility] Notes/Report: Hep C Virus Ab Non Reactive Non Reactive HCV antibody alone does not differentiate between previously resolved infection and active infection. Equivocal and Reactive HCV antibody results should be followed up with an HCV RNA test to support the diagnosis of active HCV infection. TSH reflex to [id number] Reviewed date:03/06/2024 11:22:42 AM Interpretation:1.4 Normal Performing Lab:[facility] [place], [address], [place], Phone - [phone], Director - June Notes/Report: TSH 1.400 0.450-4.500 uIU/mL Reason For Referral No Information Medications Medication SIG (Take, Route, Frequency, Duration) Notes Start Date End Date Status Lexapro Active Vyvanse Active Mony 30 MG as directed Orally M ay be used upto 5 days after sex as needed for 1 08/17/2024 A ctive Social History Sex Assigned At : Social History Observation Description Sex Assigned At Female Section Notes: social hx not reviewed Problems Problem Type SNOMED Code ICD Code Onset Dates Problem Status W/U Status Risk Notes Problem Menstrual disorder (957753148) Irregular menses (N92.6) Active confirmed Vital Signs Blood pressure diastolic 64 mm Hg 08/17/2024 Height 5ft in 08/17/2024 Blood pressure systolic 102 mm Hg 08/17/2024 Weight 204 lbs 08/17/2024 BMI 39.84 kg/m2 08/17/2024 Encounters Encounter Location Date Provider Diagnosis [address] [id number] 02/29/2024 ALVERTO LOTT Encounter for pregna ncy test, result negative Z32.02 and Encounter for screening for infections with a predominantly sexual mode of transmission Z11.[address] [id number] 03/02/2024 ALVERTO LOTT Encounter for pregna ncy test, result negative Z32.02 ; Encounter for screening for infections with a predominantly sexual mode of transmission Z11.3 ; Counseling, unspecified Z71.9 ; Other problems related to lifestyle Z72.89 ; Encounter for screening for human immunodeficiency virus [HIV] Z11.4 ; Encounter for screening for other infectious and parasitic diseases Z11.8 ; Screening for other viral diseases Z11.59 and Irregular menses N92.[address] [id number] 03/08/2024 ALVERTO LOTT Acute vaginitis N76. [address] [id number] 08/17/2024 ALVERTO LOTT Encounter for screen ing for infections with a predominantly sexual mode of transmission Z11.3 ; Counseling, unspecified Z71.9 ; Other problems related to lifestyle Z72.89 ; test, result negative Z32.02 and [facility] R30.0 [facility] [address] [id number] 03/06/2024 ALVERTO OREN [facility] [address] [id number] 08/17/2024 ALVERTO OREN [facility] [address] [id number] 03/23/2024 МАРИНАSA BELL Assessments Encounter Date Diagnosis (ICD Code) Assessment Notes Treatment Notes Treatment Clinical Notes Section Notes 02/29/2024 Encounter for test, result negative (ICD-10 - Z32.02) Discussed control, STI screening, emergency contraception, sexual coercion, family involvement and reproductive life planning. 02/29/2024 Encounter for screening for infections with a predominantly sexual mode of transmission (ICD-10 - Z11.3) 03/02/2024 Encounter for test, result negative (ICD-10 - Z32.02) Will further evaluate discharge symptoms with vaginitis panel Spent 30 minutes doing the following: Chart Prep Obtaining/revi espinal history Performing medically necessary exam Counseling/Playground Worker rdination of Care Documenting the visit Educating the patient Ordering medication/matt t/procedures Established Patient: [id number] 30 Minutes 03/02/2024 Encounter for screening for infections with a predominantly sexual mode of transmission (ICD-10 - Z11.3) Discussed STI risks, screenings that are available through [facility] and safe sex. For Hep B and C screening today. Clt aware of lab processing times and how to view results on portal and how positive results will be communicated Spent 30 minutes doing the following: Chart Prep Obtaining/revi espinal history Performing medically necessary exam Counseling/Playground Worker rdination of Care Documenting the visit Educating the patient Ordering medication/matt t/procedures Established Patient: [id number] 30 Minutes 03/08/2024 Acute vaginitis (ICD-10 - N76.0) Reviewed BV findings and treatment options. No sexual activity during treatment and condom/barrier use encouraged following for at least a month for prevention. Spent 10 minutes doing the following: Chart Prep Obtaining/revi espinal history Counseling/Playground Worker rdination of Care Documenting the visit Educating the patient Ordering medication/matt t/procedures Established Patient: 29225 10 Minutes 08/17/2024 Encounter for screening for infections with a predominantly sexual mode of transmission (ICD-10 - Z11.3) 03/02/2024 Counseling, unspecified (ICD-10 - Z71.9) Spent 30 minutes doing the following: Chart Prep Obtaining/revi espinal history Performing medically necessary exam Counseling/Playground Worker rdination of Care Documenting the visit Educating the patient Ordering medication/matt t/procedures Established Patient: 50662 30 Minutes 08/17/2024 Counseling, unspecified (ICD-10 - Z71.9) 08/17/2024 Other problems related to lifestyle (ICD-10 - Z72.89) 03/02/2024 Other problems related to lifestyle (ICD-10 - Z72.89) Spent 30 minutes doing the following: Chart Prep Obtaining/revi espinal history Performing medically necessary exam Counseling/Playground Worker rdination of Care Documenting the visit Educating the patient Ordering medication/matt t/procedures Established Patient: 67424 30 Minutes 03/02/2024 Encounter for screening for human immunodeficiency virus [HIV] (ICD-10 - Z11.4) Spent 30 minutes doing the following: Chart Prep Obtaining/revi espinal history Performing medically necessary exam Counseling/Playground Worker rdination of Care Documenting the visit Educating the patient Ordering medication/matt t/procedures Established Patient: 52985 30 Minutes 08/17/2024 test, result negative (ICD-10 - Z32.02) 08/17/2024 Dysuria (ICD-10 - R30.0) 03/02/2024 Encounter for screening for other infectious and parasitic diseases (ICD-10 - Z11.8) Spent 30 minutes doing the following: Chart Prep Obtaining/revi espinal history Performing medically necessary exam Counseling/Playground Worker rdination of Care Documenting the visit Educating the patient Ordering medication/matt t/procedures Established Patient: 86852 30 Minutes 03/02/2024 Screening for other viral diseases (ICD-10 - Z11.59) Spent 30 minutes doing the following: Chart Prep Obtaining/revi espinal history Performing medically necessary exam Counseling/Playground Worker rdination of Care Documenting the visit Educating the patient Ordering medication/matt t/procedures Established Patient: 03319 30 Minutes 03/02/2024 Irregular menses (ICD-10 - N92.6) Reviewed menses hx. Question of PCOS given hx of irreg bleeding. Neg PT today. Will do further evaluation with lab work today. Clt is not interested in BC options. Briefly reviewed using progesterone for withdrawal bleed. Will fu with clt once labs reviewed Spent 30 minutes doing the following: Chart Prep Obtaining/revi espinal history Performing medically necessary exam Counseling/Playground Worker rdination of Care Documenting the visit Educating the patient Ordering medication/matt t/procedures Established Patient: 83527 30 Minutes 02/29/2024 Other 03/02/2024 Other Spent 30 minutes doing the following: Chart Prep Obtaining/revi espinal history Performing medically necessary exam Counseling/Playground Worker rdination of Care Documenting the visit Educating the patient Ordering medication/matt t/procedures Established Patient: 58036 30 Minutes 03/08/2024 Other Will fu likely next week regarding rest of labs and irreg menses workup once all labs are reviewed Spent 10 minutes doing the following: Chart Prep Obtaining/revi espinal history Counseling/Playground Worker rdination of Care Documenting the visit Educating the patient Ordering medication/matt t/procedures Established Patient: 86373 10 Minutes Plan Of Treatment No Information Insurance Providers Payer Name Payer Address Payer Phone Subscriber Number Group Number Insured Name Patient Relationship to Insured Coverage Start Date Coverage End Date [place] ATT CLAIMS [address] [place] [id number] Rafaela Rios Self - patient is the insured Medical (General) History Medical History History ICD Code ADHD Vaginal infections
--- OUTSIDE RECORDS SUMMARY | 2024-09-30 07:43 | XMS_ITS ---
Author Organization [facility] Address [address] [place] [address] [phone] Care Team Providers Care Teletype Telegrapher Name Role Phone OREN ALVERTO Unavailable [phone] Allergies No Known Allergies REASON FOR VISIT Mony Rx Medications Medication SIG (Take, Route, Frequency, Duration) Notes Start Date End Date Status Mony 30 MG as directed Orally M ay be used upto 5 days after sex as needed for 1 08/17/2024 A ctive Social History Sex Assigned At : Social History Observation Description Sex Assigned At Female Encounters Encounter Location Date Provider Diagnosis [address] [id number] 08/17/2024 ALVERTO LOTT Plan Of Treatment Medication Medication Name Sig Start Date Stop Date Notes Mony 30 MG as directed Orally M ay be used upto 5 days after sex as needed for 1 08/17/2024 Progress Notes * Rafaela BAKERDOB:2005 (19 yo F)Acc No.[id number]:08/17/2024 Patient:?OLIVIARoloRafaela :2005???Age:19 Y???Sex:Female Address:[address] [place] [address] [place], [id number] * Refills? Start Mony Tablet, 30 MG, Orally, 1, as directed, May be used upto 5 days after sex as needed, 1, Refills=5 Subjective: * Chief Complaints: * ???Mony Rx * Medical History:? * Surgical History:? * Hospitalization/Major Diagno stic Procedure:? * Medications:? * Allergies:?N.K.D.A.no[Allerg ies Verified] Objective: * Vitals:? * Physical Examination:? Assessment: Plan: * Treatment: * Procedure Codes:? * true * Date:? Generated for Angeli buenrostro/Lance/Adolph on:?09/30/2024 07:43 AM EDT
--- NOTE | 2024-09-30 08:27 | ED_ITS ---
HPI - Skin/Abscess/Foreign Bdy General Chief complaint: Skin/Abscess/Foreign Body Stated complaint: bug bites? Possible rash Time Seen by Provider: 09/30/24 07:59 Source: patient Mode of arrival: ambulatory Limitations: no limitations History of Present Illness ED Provider: Hayden Zavala PA-C HPI narrative: 19 yo female presents to the ER for evaluation of a spreading red, itchy rash for the last couple of days with concern for scabies. she reports the itching is worse at night, started on her arm, now in her underarm, hands, feet, legs and back. no relief with hydrocortisone. she is unsure if she has had exposure to scabies. no new lotions, detergents, meds or foods. no fevers. no face involvement or mucosal involvement. MD complaint: rash Onset (ago): day(s) Tetanus up to date: yes Location: generalized Severity: moderate Quality: pruritic Pain Consistency: constant Relieving factors: none Exacerbating factors: none Context: none Associated symptoms: denies other symptoms Treatments prior to arrival: OTC topical medication Related Data Home Medications ?Medication ?Instructions ?Recorded ?Confirmed guanfacine 2 mg tablet,extended mg PO DAILY 07/10/24 release 24 hr lisdexamfetamine 20 mg capsule 20 mg PO DAILY 07/10/24 (Vyvanse) Previous Rx's ?Medication ?Instructions ?Recorded ulipristal 30 mg tablet (Mony) 30 mg PO ONCE #1 tab 12/26/23 oseltamivir 75 mg capsule (Tamiflu) 75 mg PO BID 5 days #10 caps 07/10/24 permethrin 5 % topical cream 1 appl topical Q14D PRN itching 2 09/30/24 doses #60 grams Allergies Allergy/AdvReac Type Severity Reaction Status Date / Time No Known Allergies Allergy Verified 09/30/24 05:36 Review of Systems Review of Systems: Yes all other systems are reviewed and are negative PMFSH Past Medical History Medical History (Updated 09/30/24 @ 08:28 by MERY Clifton) Morbid obesity Back spasm Dysmenorrhea Depression Anxiety Obesity ADHD (attention deficit hyperactivity disorder), inattentive type STD (female) Surgical History Hx of tonsillectomy Family History Family History Paternal Aunt Diabetes Mother Overdose Mental health disorder Substance use disorder Father Mental health disorder Social History Social History Household Members: Other Household Members Other:: lives w/ dad, sibs, stepmother-who has ALS. dad overwhelmed w/her care&work Housing: House Alcohol intake: current Patient Tobacco Use Status: Never used Tobacco e-Cigarette/Vaping Use: Currently Using Substance Use Type: Marijuana Advance Directives: No Advance Directives Information Provided: Yes Do you have a plan to hurt others: No Plan service: No Current occupational status: unemployed Sexual orientation: Straight/Heterosexual Gender identity: Female Cognitive needs: No Hearing needs: No Vision needs: Yes Physical Exam Vital Signs: Vital Signs: Last Vital Signs Temp 97.2 F 09/30/24 08:34 Pulse 99 09/30/24 08:34 Resp 20 09/30/24 08:34 BP 133/74 09/30/24 08:34 Pulse Ox 97 09/30/24 08:34 O2 Del Method Room Air 09/30/24 08:34 BMI result Body Mass Index 35.5 Appearance: Alert. Oriented X3. No acute distress. Head: normocephalic, atraumatic. Eyes: Pupils equal, round and reactive to light. ENT: Pharynx normal. Neck: Normal inspection. CVS: Normal heart rate and rhythm. Pulses normal. Respiratory: No respiratory distress. Breath sounds normal. Abdomen: Soft and nontender. +BS x4 Skin: Skin warm and dry. Normal skin color. Normal skin turgor. scattered erythematous areas on the right elbow, righ tunderarm, bilateral feet, upper back with burrowing noted on the back of the right hand. Extremities: No lower extremity edema. No joint swelling. Neuro/psych: Oriented X 3. grossly normal, nonfocal. Normal speech and cognition. Medical Decision Making Medical Decision Making MDM Narrative: 19 yo female presenting with itchy red rash on her body for the last couple of days. she is very worried about scabies. exam with possible burrowing so will treat with permethrin for scabies patient counseled on treatment and return precautions Differential Diagnosis Differential Diagnoses: The differential diagnosis associated with the presentation includes scabies, contact dermatitis, allergic dermatitis, hives, bedbugs External Record Review External record reviewed: Prior outpatient labs Prescription Management I considered prescription management with: Antibiotic and Other (permethrin, st eroids, hydrocortisone) Critical Care Time Critical Care Time Critical Care Time: No Discharge Plan Discharge Clinical Impression: Dermatitis Patient Disposition: Home, Self-Care Instructions: Scabies (ED), Dermatitis (ED) Additional Instructions: apply the prescribed cream to the entire body at night, leave it on for 8-14 hours then wash off in the morning treatment can be repeated in 2 weeks if symptoms persist take benadryl as needed for itching follow up with your PCP If you develop new or worsening symptoms call 911 or come back to the ER for further evaluation. Prescriptions: New permethrin 5 % cream 1 appl topical Q14D PRN (Reason: itching) Qty: 60 0RF Rx Instructions: apply second treatment 14 days after first treatment if symptoms persist No Action oseltamivir [Tamiflu] 75 mg capsule 75 mg PO BID 5 Days Qty: 10 0RF Mony 30 mg tablet 30 mg PO ONCE Qty: 1 2RF Rx Instructions: Take as necessary for unprotected intercourse. guanfacine 2 mg tablet extended release 24 hr PO DAILY lisdexamfetamine [Vyvanse] 20 mg capsule 20 mg PO DAILY Interventions: ED Discharge Assessment Last Done: 09/30/24 08:34 Discharge Date/Time: 09/30/24 08:34 Print Language: Greenlandic
[2024-09-30 08:34] VITALS: BP 133/74; PULSE 99; RESP 20; TEMP 36.2; O2SAT 97
== END 2024-09-30 08:34 | disposition home or self-care (01) ==
PROVIDERS: Emergency Provider Emergency Medicine
DX: L30.9 Dermatitis, unspecified (principal); Z79.899 Other long term (current) drug therapy
CPT/HCPCS: 99283; 99284

== ENCOUNTER 2024-11-20 13:40 | Outpatient (AMB) | payer OTHER, SELFPAY ==
[2024-11-20 13:59] VITALS: BP 114/78; PULSE 100; TEMP 37.2; O2SAT 99; BMI 33.7
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
--- OUTSIDE RECORDS SUMMARY | 2024-11-20 15:55 | XMS_ITS | Encounter Summary ---
Author Organization [facility] Address [address] [place] [phone] Phone Care Team Providers Care Sleep Technician Name Role Phone William Ochoa MD Primary Care Provider Massiel jeronimo Encounter Details Date Type Department Care Team (Late st Contact Info) Description 05/11/2011 Documentation EM Family Medicine [address] [place], [place] [phone] Family Medicine, Physician [address] [place] [address] Social History Tobacco Use Types Packs/Day Years [...] on filedocumented in this encounter Care Teams Sleep Technician Relationship Specialty Start Date End Date William Ochoa MD PCP - General 01/07/17 09/23/22 documented as of this encounter
== END 2024-11-20 15:30 | disposition home or self-care (01) ==
PROVIDERS: Visit Provider Physician Assistant
DX: N30.01 Acute cystitis with hematuria (principal); N89.8 Other specified noninflammatory disorders of vagina; Z13.9 Encounter for screening, unspecified

== ENCOUNTER 2024-11-20 13:40 | Outpatient (REF) | payer OTHER, SELFPAY ==
[2024-11-20 21:14] LABS: Bacterial Vaginosis PCR NEGATIVE (Negative); Candida Group PCR DETECTED (Not Detect); Candida glab krusei PCR NOT DETECTED (Not Detect); Trichomonas vaginalis PCR NOT DETECTED (Not Detect)
== END 2024-11-20 13:41 | disposition home or self-care (01) ==
LOC: HO.LAB 13:40
PROVIDERS: Physician Assistant
DX: N89.8 Other specified noninflammatory disorders of vagina (principal); N30.01 Acute cystitis with hematuria; Z13.9 Encounter for screening, unspecified
CPT/HCPCS: 81003; 81515; 99202

== ENCOUNTER 2025-01-22 13:08 | Outpatient (AMB) | payer OTHER, SELFPAY ==
--- OUTSIDE RECORDS SUMMARY | 2024-08-18 06:45 | XMS_ITS ---
Author Organization [facility] Address [address] [place] [id number] Care Team Providers Care Strategic Planning Director Name Role Phone ALVERTO LOTT Unavailable [phone] REASON FOR VISIT Infection Screening Medications Medication SIG (Take, Route, Frequency, Duration) Notes Start Date End Date Status Lexapro Active Vyvanse Active Mony 30 MG as directed Orally M ay be used upto 5 days after sex as needed; Duration: 1 08/17/2024 Active Social History Sex Assigned At : Social History Observation Description Sex Assigned At Female Encounters Encounter Location Date Provider Diagnosis [address] [place], [place] [id number] 08/18/2024 ALVERTO LOTT Plan Of Treatment No Information Progress Notes * Rafaela BAKERDOB:2005 (20 yo F)Acc No.[id number]:08/18/2024 Patient: Rolo CASASllian Provider: Blair LOTT :2005 A ge:19 Y S ex:Female Date:08/18/2024 Address:[address] [place] [address] IS[place] BELL [id number] Subjective: * Chief Complaints: * 1 . Infection Screening. * Medical History: * Medications: T aking Lexapro , Taking Vyvanse , Taking Mony 30 MG Tablet as directed Orally May be used upto 5 days after sex as needed Objective: * Vitals: Assessment: Plan: * Treatment: * Billing Information: * Visit Code: * Procedure Codes: * Electronic signature of STEVE LOTT CNM on 01/22/2025 at 01:56 PM EDT Sign off status: Pending * Provider: Blair LOTT Date: 0 08/18/2024 Generated for Angeli buenrosrto/Lance/Adolph on: 0 01/22/2025 01:56 PM EDT
--- NOTE | 2025-01-22 13:51 | MHC.OFFWIV ---
Intake Vital Signs 01/22/25 13:53 Height 5 ft 3 in Weight 200 lb BMI 35.4 BP 102/60 Blood Pressure Location Rt brachial Position Sitting Pulse 87 Pulse Source Pulse Oximeter Temp 98.8 F Temp Source Oral Pulse Oximetry (%) 98 Oxygen Delivery Method Room Air Intake Visit Reasons: EP Vomiting, cold chills, chest pain Intake Note: pt presents with body chills/heat, vomiting, productive cough, chest and back pain with dyspnea Patient Tobacco Use Status: Never used Tobacco Allergies No Known Allergies Allergy (Verified 01/22/25 13:55) Do you need a note to return to daycare/school/sports/work: Yes HPI HPI Comments History of Present Illness Details History of Present Illness - The patient is a 20-year-old female presenting with nausea, vomiting, and diarrhea since Tuesday. - Symptoms began on Tuesday with chest and back pain, difficulty breathing, and vomiting, followed by cold and hot sweats. - She reports diarrhea with a burning sensation, increased urination frequency, and a cough with brown sputum. - The patient denies recent travel, exposure to sick contacts, or dietary changes. 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 - She started with burning with going to the bathroom this am. - She states that she has been very tired and was not able to get out of bed yesterday. - She denies fever, chest pain, blood in the urine or stool. - She denies eating bad food. Physical Exam General: Cooperative, healthy appearing, comfortable, no acute distress and well developed Orientation: Patient oriented x3 Limitations: No limitations Head: Normal to inspection Ears: Hearing grossly normal bilaterally, but ears are itchy Nose: Normal external nose present Face and sinus: Normal facial exam Eyes: Appearance normal, both eyes and all related structures Neck: Normal visual inspection and Yes full ROM Respiratory: Normal respiratory effort, able to speak in complete sentences, but coughing with brown sputum Cardiovascular: Regular rate and rhythm. Normal S1 and S2 GI: Normal to inspection. Soft to palpation and nontender, non-distended, obese. Hypoactive BS noted. No guarding or rebound tenderness noted. Neg CVA tenderness noted. Skin: No rashes or lesions noted Plan Patient was informed and verbally consented to the use of an ambient scribe for clinic note documentation during this visit. [facility] Medical History (Updated 11/20/24 @ 14:24 by Cristina De La Rosa PA-C) Morbid obesity Back spasm Dysmenorrhea Depression Anxiety Obesity ADHD (attention deficit hyperactivity disorder), inattentive type STD (female) Surgical History Hx of tonsillectomy Family History Paternal Aunt Diabetes Mother Overdose Mental health disorder Substance use disorder Father Mental health disorder Social History Household Members: Other Household Members Other:: lives w/ dad, sibs, stepmother-who has ALS. dad overwhelmed w/her care&work Housing: House Alcohol intake: current Patient Tobacco Use Status: Never used Tobacco e-Cigarette/Vaping Use: Currently Using Substance Use Type: Marijuana service: No Current occupational status: unemployed Sexual orientation: Straight/Heterosexual Gender identity: Female Cognitive needs: No Hearing needs: No Vision needs: Yes Female Reproductive History Menstrual Age of Menarche: 10 Review of Systems Const All systems reviewed & are unremarkable except as noted in HPI and below Physical Exam Vital Signs: Last Vital Signs Temp 98.8 F 01/22/25 13:53 Pulse 87 01/22/25 13:53 BP 102/60 01/22/25 13:53 Pulse Ox 98 01/22/25 13:53 Oxygen Delivery Method Room Air 01/22/25 13:53 BMI result Body Mass Index 35.4 Assessment & Plan Assessment & Plan (1) Nausea vomiting and diarrhea: Code(s): R11.2 - Nausea with vomiting, unspecified; R19.7 - Diarrhea, unspecified (2) Dysuria: Code(s): R30.0 - Dysuria (3) Cough: Code(s): R05.9 - Cough, unspecified Qualifiers: Cough type: acute Qualified Code(s): R05.1 - Acute cough Plan Most likely viral illness UA in the office was negative for infection and dehydration plan - Symptomatic treatment and ensuring adequate hydration are recommended. - Urinalysis is planned to confirm diagnosis and guide treatment. - Testing for COVID-19 and influenza is planned to rule out specific viral infections. - [place] BRAT diet - tylenol or motrin as needed - drink lots of water - work note given - follow up with PCP Orders: Orders AMB Urinalysis Automated Today R30.0 - Dysuria SARS-CoV2/FLU/RSV Today R09.89 - Other specified symptoms and signs involving the circulatory and respiratory systems Coding Level of Care Code Est Pt Level 4 (43868) Diagnoses Nausea vomiting and diarrhea R11.2; R19.7 Dysuria R30.0 Acute cough R05.1 Cough type: acute
[2025-01-22 13:53] VITALS: BP 102/60; PULSE 87; TEMP 37.1; O2SAT 98; BMI 35.4
--- OUTSIDE RECORDS SUMMARY | 2025-01-22 13:56 | XMS_ITS | Encounter Summary ---
Author Organization [facility] Address [address] [place] [address] Phone Care Team Providers Care Export Sales Manager Name Role Phone William Ochoa MD Primary Care Provider Massiel jeronimo Encounter Details Date Type Department Care Team (Late st Contact Info) Description 11/10/2010 Documentation EM Family Medicine [address] [place], [place] [phone] Family Medicine, Physician [address] [place] [address] Social History Tobacco Use Types Packs/Day Years [...] on filedocumented in this encounter Care Teams Export Sales Manager Relationship Specialty Start Date End Date William Ochoa MD PCP - General 01/07/17 09/23/22 documented as of this encounter
--- OUTSIDE RECORDS SUMMARY | 2025-01-22 13:56 | XMS_ITS | Encounter Summary ---
Author Organization [facility] Address [address] [place] [address] Phone Care Team Providers Care Cigar Roller Name Role Phone William Ochoa MD Primary Care Provider Massiel jeronimo Encounter Details Date Type Department Care Team (Late st Contact Info) Description 11/10/2010 Documentation EM Family Medicine [address] [place], [place] [phone] Family Medicine, Physician [address] [place] [address] Social History Tobacco Use Types Packs/Day Years [...] on filedocumented in this encounter Care Teams Cigar Roller Relationship Specialty Start Date End Date William Ochoa MD PCP - General 01/07/17 09/23/22 documented as of this encounter
--- OUTSIDE RECORDS SUMMARY | 2025-01-22 13:56 | XMS_ITS | Clinical Summary ---
Author Organization [facility] Address [address] [place] [address] Phone Care Team Providers Care President [employer] Name Role Phone Unavailable Primary Care Provider Unavailabl e Immunizations Immunization Administration Dates Next Due DTaP / Hep B / IPV 2004,2004, 004 DTaP 5 09/17/2008,07/30/2005 H1N1 03/24/2009 Hep B, ped/adol 2004 Hib (HbOC) 04/19/2005,2004,2004 ,2004 IPV 09/17/2008 Influenza Split 03/10/2010,01/19/2010 Influenza, injectable, trivalent 06/24/2008,12/08/2006,04/19/2005 MMR 09/17/2008,01/15/2005 Pneumococcal Conjugate 04/19/2005,2004,,2004 Varicella 09/17/2008,01/15/2005 [...] AM EST Pulse - - Temperature 36.9 C (98.4 F) 05/14/2011 12:00 AM EST Respiratory Rate - - Oxygen Saturation - [...] Vaccine (1 of 2 - Standard) 2020 COVID-19 Vaccine (2023- season) 2024 Influenza Vaccines (#1) 2024 03/10/20 10, 01/19/2010, 06/24/2008, Additional history exists Hepatitis B Vaccines Completed 2004, 2004, 2004, [...]
--- OUTSIDE RECORDS SUMMARY | 2025-01-22 13:56 | XMS_ITS | Encounter Summary ---
Author Organization [facility] Address [address] [place] [address] Phone Care Team Providers Care Book Jogger Name Role Phone William Ochoa MD Primary Care Provider Massiel jeronimo Encounter Details Date Type Department Care Team (Late st Contact Info) Description 05/11/2011 Documentation EM Family Medicine [address] [place], [place] [phone] Family Medicine, Physician [address] [place] [address] Social History Tobacco Use Types Packs/Day Years [...] on filedocumented in this encounter Care Teams Book Jogger Relationship Specialty Start Date End Date William Ochoa MD PCP - General 01/07/17 09/23/22 documented as of this encounter
--- OUTSIDE RECORDS SUMMARY | 2025-01-22 13:56 | XMS_ITS | Encounter Summary ---
Author Organization [facility] Address [address] [place] [address] Phone Care Team Providers Care Court Administrator Name Role Phone William Ochoa MD Primary Care Provider Massiel jeronimo Encounter Details Date Type Department Care Team (Late st Contact Info) Description 05/11/2011 Documentation EM Family Medicine [address] [place], [place] [phone] Family Medicine, Physician [address] [place] [address] Social History Tobacco Use Types Packs/Day Years [...] on filedocumented in this encounter Care Teams Court Administrator Relationship Specialty Start Date End Date William Ochoa MD PCP - General 01/07/17 09/23/22 documented as of this encounter
--- OUTSIDE RECORDS SUMMARY | 2025-01-22 13:56 | XMS_ITS | Encounter Summary ---
Author Organization [facility] Address [address] [place] [address] Phone Care Team Providers Care Gas Systems Worker Name Role Phone William Ochoa MD Primary Care Provider Massiel jeronimo Encounter Details Date Type Department Care Team (Late st Contact Info) Description 11/10/2010 Documentation EM Family Medicine [address] [place], [place] [phone] Family Medicine, Physician [address] [place] [address] Social History Tobacco Use Types Packs/Day Years [...] on filedocumented in this encounter Care Teams Gas Systems Worker Relationship Specialty Start Date End Date William Ochoa MD PCP - General 01/07/17 09/23/22 documented as of this encounter
--- OUTSIDE RECORDS SUMMARY | 2025-01-22 13:56 | XMS_ITS | Encounter Summary ---
Author Organization [facility] Address [address] [place] [address] Phone Care Team Providers Care Cargo Surveyor Name Role Phone William Ochoa MD Primary Care Provider Massiel jeronimo Encounter Details Date Type Department Care Team (Late st Contact Info) Description 04/14/2011 Documentation EM Family Medicine [address] [place], [place] [phone] Family Medicine, Physician [address] [place] [address] Social History Tobacco Use Types Packs/Day Years [...] on filedocumented in this encounter Care Teams Cargo Surveyor Relationship Specialty Start Date End Date William Ochoa MD PCP - General 01/07/17 09/23/22 documented as of this encounter
--- OUTSIDE RECORDS SUMMARY | 2025-01-22 13:56 | XMS_ITS | Encounter Summary ---
Author Organization [facility] Address [address] [place] [address] Phone Care Team Providers Care Irrigation System Operator Name Role Phone William Ochoa MD Primary Care Provider Massiel jeronimo Encounter Details Date Type Department Care Team (Late st Contact Info) Description 05/11/2011 Documentation EM Family Medicine [address] [place], [place] [phone] Family Medicine, Physician [address] [place] [address] Social History Tobacco Use Types Packs/Day Years [...] on filedocumented in this encounter Care Teams Irrigation System Operator Relationship Specialty Start Date End Date William Ochoa MD PCP - General 01/07/17 09/23/22 documented as of this encounter
--- OUTSIDE RECORDS SUMMARY | 2025-01-22 13:57 | XMS_ITS | Encounter Summary ---
Author Organization [facility] Address [address] [place] [address] Phone Care Team Providers Care Sanitation Worker Cleaning Equipment Name Role Phone William Ochoa MD Primary Care Provider Massiel jeronimo Encounter Details Date Type Department Care Team (Late st Contact Info) Description 06/30/2011 Documentation EM Family Medicine [address] [place], [place] [phone] Family Medicine, Physician [address] [place] [address] Social History Tobacco Use Types Packs/Day Years [...] on filedocumented in this encounter Care Teams Sanitation Worker Cleaning Equipment Relationship Specialty Start Date End Date Wliliam Ochoa MD PCP - General 01/07/17 09/23/22 documented as of this encounter
--- OUTSIDE RECORDS SUMMARY | 2025-01-22 13:57 | XMS_ITS | Encounter Summary ---
Author Organization [facility] Address [address] [place] [phone] Phone Care Team Providers Care Renal Dietitian Name Role Phone William Ochoa MD Primary Care Provider Massiel jeronimo Encounter Details Date Type Department Care Team (Late st Contact Info) Description 11/23/2010 Documentation EM Family Medicine [address] [place], [place] [phone] Family Medicine, Physician [address] [place] [address] Social History Tobacco Use Types Packs/Day Years [...] on filedocumented in this encounter Care Teams Renal Dietitian Relationship Specialty Start Date End Date William Ochoa MD PCP - General 01/07/17 09/23/22 documented as of this encounter
--- OUTSIDE RECORDS SUMMARY | 2025-01-22 13:57 | XMS_ITS | Encounter Summary ---
Author Organization [facility] Address [address] [place] [address] Phone Care Team Providers Care Incident Handler Name Role Phone William Ochoa MD Primary Care Provider Massiel jeronimo Encounter Details Date Type Department Care Team (Late st Contact Info) Description 01/26/2011 Documentation [facility] [address] [place], [place] [phone] Family Medicine, Physician [address] [place] [address] Social History Tobacco Use Types Packs/Day Years [...] on filedocumented in this encounter Care Teams Incident Handler Relationship Specialty Start Date End Date William Ochoa MD PCP - General 01/07/17 09/23/22 documented as of this encounter
--- OUTSIDE RECORDS SUMMARY | 2025-01-22 13:57 | XMS_ITS | Patient Health Record ---
Author Organization [facility] Address [address] [place] [phone] Care Team Providers Care Jackscrew Man Name Role Phone МАРИНА BELL Unavailable [phone] ALVERTO LOTT Unavailable [phone] Allergies No Known Allergies Results Component Value Reference Range Notes Test, Urine Reviewed date:02/29/2024 11:20:43 AM Interpretation:Negative Performing Lab: Notes/Report: Negative Test, Urine neg Lot # [id number] Exp. Date 11/29/[address]/NG, Urine Reviewed date:03/08/2024 01:24:09 PM Interpretation:Negative Performing Lab:[facility], [address] [facility], [place], [address] Francisco Javier Clark DO Notes/Report: GONORRHEA, AMPLIFIED NEGATIVE NEGATIVE CHLAMYDIA, AMPLIFIED NEGATIVE NEGATIVE DNA Test Results SEX: F : 2005 AGE: 19 [id number] CLINIC ID: [id number] SS: PHYSICIAN: ALVERTO LOTT [facility] COLLECTED BY: [id number] Specimen Source: Urine Specimen Type: Urine, Umang PCR Medium Neisseria gonorrhoeae: NEGATIVE Normal Value: Negative Chlamydia trachomatis: NEGATIVE Normal Value: Negative Test, Urine Reviewed date:03/02/2024 02:16:37 PM Interpretation:Negative Performing Lab: Notes/Report: Negative Test, Urine Negative Lot # [id number] Exp. Date 11/29/[address]/NG, Throat /Pharyngeal Reviewed date:03/08/2024 04:43:19 PM Interpretation:Negative Performing Lab:[facility], [facility], [place], [address] Francisco Javier Clark DO Notes/Report: GONORRHEA, AMPLIFIED NEGATIVE NEGATIVE CHLAMYDIA, AMPLIFIED NEGATIVE NEGATIVE DNA Test Results SEX: F : 2005 AGE: 19 [id number] CLINIC ID: [id number] SS: PHYSICIAN: ALVERTO LOTT [facility] COLLECTED BY: [id number] Specimen Source: Throat/Pharyngeal Specimen Type: Swab, Umang PCR Medium Neisseria gonorrhoeae: NEGATIVE Normal Value: Negative Chlamydia trachomatis: NEGATIVE Normal Value: Negative FSH-[id number] Reviewed date:03/06/2024 11:23:00 AM Interpretation:7, Normal Performing Lab:[facility], [address] [place] [address], Phone - [phone], Director - June Notes/Report: FSH 7.0 Adult Female Range Follicular phase 3.5 - 12.5 Ovulation phase 4.7 - 21.5 Luteal phase 1.7 - 7.7 Postmenopausal 25.8 - 134.8 Prolactin-044276 Reviewed date:03/06/2024 11:23:23 AM Interpretation:10.1, Normal Performing Lab:[facility], [address] [facility], Phone - [phone], Director - June Notes/Report: Prolactin 10.1 4.8-33.4 ng/mL Estradiol-133443 Reviewed date:03/14/2024 04:50:04 PM Interpretation:62 Performing Lab:[facility], [address] [facility], Phone - [phone], Director - June Notes/Report: Estradiol 62.0 Adult Female Range Follicular phase 12.5 - 166.0 Ovulation phase 85.8 - 498.0 Luteal phase 43.8 - 211.0 Postmenopausal <6.0 - 54.7 1st trimester 215.0 - >4300.0 Alycia ECLIA methodology HBsAg Screen-116066 Reviewed date:03/06/2024 11:20:57 AM Interpretation:Negative Performing Lab:[facility], [address], [address], [place], Phone - [phone], Director - [facility] Notes/Report: HBsAg Screen Negative Negative Hepatitis B Surf Ab Quant-00 6530 Reviewed date:03/06/2024 11:21:16 AM Interpretation:Immune Performing Lab:[facility], [address], [address], [place], Phone - [phone], Director - [facility] Notes/Report: Hepatitis B Surf Ab Quant 97.7 Immunity>10 mIU /mL Status of Immunity Anti-HBs Level Inconsistent with Immunity 0.0 - 10.0 Consistent with Immunity >10.0 Testosterone, Total, LC/MS-0 90721 Reviewed date:03/14/2024 04:47:20 PM Interpretation:32 Normal Performing Lab:[facility], [address] [place] [address], Phone - [phone], Director - [facility] Notes/Report: and Drug Administration. by [employer]. It has not been cleared or approved by the Food was developed and its performance characteristics determined Test(s) 703473-18-KD Progesterone LCMS Testosterone, Total, LC/MS 32 This test was developed and its performance characteristics determined by [employer]. It has not been cleared or approved by the Food and Drug Administration. Reference Range: Adult Females Premenopausal 10 - 55 Postmenopausal 7 - 40 17-OH Progesterone LCMS-0700 85 Reviewed date:03/14/2024 09:20:24 AM Interpretation:34 Normal Performing Lab:[facility], [address] [place] [address], Phone - [phone], Director - [facility] Notes/Report: Test(s) 094641-44-GL Progesterone LCMS was developed and its performance characteristics determined by [facility]. It has not been cleared or approved by the Food and Drug Administration. 17-OH Progesterone LCMS 34 Adult Female Follicular 15 - 70 Luteal 35 - 290 Sex Horm Binding Glob, Serum -8190604 Reviewed date:03/14/2024 04:47:10 PM Interpretation:26 Performing Lab:[facility], [address], [address], [place], Phone - [phone], Director - [facility] Notes/Report: Sex Horm Binding Glob, Serum 26.0 24.6-122.0 n mol/L T pallidum Screening [place] -959819 Reviewed date:03/06/2024 11:21:45 AM Interpretation:Negative Performing Lab:[facility], [address], [address], [place], Phone - [phone], Director - [facility] Notes/Report: T pallidum Antibodies Non Reactive Non Reactive HIV Ab/p24 Ag with Reflex-08 3935 Reviewed date:03/06/2024 11:21:36 AM Interpretation:Negative Performing Lab:[facility], [address], [address], [place], Phone - [phone], Director - [facility] Notes/Report: HIV Ab/p24 Ag Screen Non Reactive Non Reactive HIV-1/HIV-2 antibodies and HIV-1 p24 antigen were NOT detected. There is no laboratory evidence of HIV infection. HIV Negative NuSwab VG+, Alesia 6sp-1800 68 Reviewed date:03/06/2024 11:12:14 AM Interpretation:BV Positive Performing Lab:[facility], [address] [facility], Phone - [phone], Director - [facility] Notes/Report: and Drug Administration. by [facility]. It has not been cleared or approved by the Food was developed and its performance characteristics determined 729116-Zjhkpyk krusei, ADEOLA 953341-E parapsilosis/tropicalis; 014827-Eoagxym lusitaniae, ADEOLA; Test(s) 800015-Isjkfnh albicans, ADEOLA; 670228-Tttbpzg glabrata, ADEOLA; and Drug Administration. by [facility]. It has not been cleared or approved by the Food was developed and its performance characteristics determined Megasphaera 1 Test(s) 615665- Atopobium vaginae; 998324- BVAB 2; 376408- Atopobium vaginae High - 2 BVAB 2 [...] Negative Neisseria gonorrhoeae, ADEOLA Negative Negative HCV Antibody-695769 Reviewed date:03/06/2024 11:21:27 AM Interpretation:Negative Performing Lab:[facility], [facility] [address], [address] [place] [address], Phone - [phone], Director - [facility] Notes/Report: Hep C Virus Ab Non Reactive Non Reactive HCV antibody alone does not differentiate between previously resolved infection and active infection. Equivocal and Reactive HCV antibody results should be followed up with an HCV RNA test to support the diagnosis of active HCV infection. TSH reflex to V9T-[id number] Reviewed date:03/06/2024 11:22:42 AM Interpretation:1.4 Normal Performing Lab:[facility], [address] [facility], Phone - [phone], Director - [place] [facility] Notes/Report: TSH 1.400 0.450-4.500 uIU/mL Test, Urine Reviewed date:08/17/2024 04:56:07 PM Interpretation:Negative Performing Lab: Notes/Report: Negative Test, Urine Negative Lot # [id number] Exp. Date 02/19/2025 Urinalysis Reviewed date:08/20/2024 12:08:16 PM Interpretation:Normal Performing Lab: Notes/Report: Normal Leukocytes - Nitrates - Uro 0.2 Protein 15 pH 5.5 Blood - Spec Davison 1.030 Ketones 5 Bilirubin - Glucose - Reason For Referral No Information Medications Medication [...] W/U Status Risk Notes Problem Menstrual disorder (720288994) Irregular menses (N92.6) Active confirmed Vital Signs Blood pressure diastolic 64 mm Hg 08/17/2024 Height 5ft in 08/17/2024 Blood pressure systolic 102 mm Hg 08/17/2024 Weight 204 lbs 08/17/2024 BMI 39.84 kg/m2 08/17/2024 Encounters Encounter Location Date Provider Diagnosis [address] [id number] 02/29/2024 ALVERTO LOTT Encounter for pregna ncy test, result negative Z32.02 and Encounter for screening for infections with a predominantly sexual mode of transmission Z11.[address] [id number] 03/02/2024 ALVERTO LOTT Encounter for pregna ncy [...] viral diseases Z11.59 and Irregular menses N92.[address] [place], [place] [id number] 03/08/2024 ALVERTO LOTT Acute vaginitis N76. [address] [id number] 08/17/2024 ALVERTO LOTT Encounter for screen ing for infections with a predominantly sexual mode of transmission Z11.3 ; Counseling, unspecified Z71.9 ; Other problems related to lifestyle Z72.89 ; test, result negative Z32.02 and [facility] [address] [id number] 03/06/2024 ALVERTO OREN [facility] [address] [id number] 08/17/2024 [facility] [address] [id number] 03/23/2024 МАРИНАSA BELL Assessments Encounter Date Diagnosis [...] Obtaining/revi espinal history Performing medically necessary exam Counseling/Core Piler rdination of Care Documenting the visit Educating the patient Ordering medication/matt t/procedures Established Patient: 21358 30 Minutes 03/02/2024 Encounter for screening for [...] Obtaining/revi espinal history Performing medically necessary exam Counseling/Core Piler rdination of Care Documenting the visit Educating the patient Ordering medication/matt t/procedures Established Patient: 44555 30 Minutes 03/08/2024 Acute vaginitis (ICD-10 - N76.0) Reviewed BV findings and treatment options. No sexual activity during treatment and condom/barrier use encouraged following for at least a month for prevention. Spent 10 minutes doing the following: Chart Prep Obtaining/revi espinal history Counseling/Core Piler rdination of Care Documenting the visit Educating the patient Ordering medication/matt t/procedures Established Patient: 23250 10 Minutes 08/17/2024 Encounter for screening for infections with a predominantly sexual mode of transmission (ICD-10 - Z11.3) 03/02/2024 Counseling, unspecified (ICD-10 - Z71.9) Spent 30 minutes doing the following: Chart Prep Obtaining/revi espinal history Performing medically necessary exam Counseling/Core Piler rdination of Care Documenting the visit Educating the patient Ordering medication/matt t/procedures Established Patient: 07284 30 Minutes 08/17/2024 Counseling, unspecified (ICD-10 - Z71.9) 08/17/2024 Other problems related to lifestyle (ICD-10 - Z72.89) 03/02/2024 Other problems related to lifestyle (ICD-10 - Z72.89) Spent 30 minutes doing the following: Chart Prep Obtaining/revi espinal history Performing medically necessary exam Counseling/Core Piler rdination of Care Documenting the visit Educating the patient Ordering medication/matt t/procedures Established Patient: 71284 30 Minutes 03/02/2024 Encounter for screening for human immunodeficiency virus [HIV] (ICD-10 - Z11.4) Spent 30 minutes doing the following: Chart Prep Obtaining/revi espinal history Performing medically necessary exam Counseling/Core Piler rdination of Care Documenting the visit Educating the patient Ordering medication/matt t/procedures Established Patient: 30290 30 Minutes 08/17/2024 test, result negative (ICD-10 - Z32.02) 08/17/2024 Dysuria (ICD-10 - R30.0) 03/02/2024 Encounter for screening for other infectious and parasitic diseases (ICD-10 - Z11.8) Spent 30 minutes doing the following: Chart Prep Obtaining/revi espinal history Performing medically necessary exam Counseling/Core Piler rdination of Care Documenting the visit Educating the patient Ordering medication/matt t/procedures Established Patient: 83013 30 Minutes 03/02/2024 Screening for other viral diseases (ICD-10 - Z11.59) Spent 30 minutes doing the following: Chart Prep Obtaining/revi espinal history Performing medically necessary exam Counseling/Core Piler rdination of Care Documenting the visit Educating the patient Ordering medication/matt t/procedures Established Patient: 47528 30 Minutes 03/02/2024 Irregular menses (ICD-10 - [...] Obtaining/revi espinal history Performing medically necessary exam Counseling/Core Piler rdination of Care Documenting the visit Educating the patient Ordering medication/matt t/procedures Established Patient: 52168 30 Minutes 02/29/2024 Other 03/02/2024 Other Spent 30 minutes doing the following: Chart Prep Obtaining/revi espinal history Performing medically necessary exam Counseling/Core Piler rdination of Care Documenting the visit Educating the patient Ordering medication/matt t/procedures Established Patient: 49796 30 Minutes 03/08/2024 Other Will fu likely next week regarding rest of labs and irreg menses workup once all labs are reviewed Spent 10 minutes doing the following: Chart Prep Obtaining/revi espinal history Counseling/Core Piler rdination of Care Documenting the visit Educating the patient Ordering medication/matt t/procedures Established Patient: 04873 10 Minutes Plan Of Treatment No Information Insurance Providers Payer Name Payer Address Payer Phone Subscriber Number Group Number Insured Name Patient Relationship to Insured Coverage Start Date Coverage End Date [place] [address] [place] [address] [id number] Rafaela Rios Self - patient is the insured Medical (General) History Medical History History ICD Code ADHD Vaginal infections
--- OUTSIDE RECORDS SUMMARY | 2025-01-22 13:57 | XMS_ITS | Encounter Summary ---
Author Organization [facility] Address [address] [place] [address] Phone Care Team Providers Care [place] Man Name Role Phone William Ochoa MD Primary Care Provider Massiel jeronimo Encounter Details Date Type Department Care Team (Late st Contact Info) Description 2017 Conversion Encounter [facility] - [address] [address] Social History Tobacco Use Types Packs/Day Years [...] on filedocumented in this encounter Care Teams [place] Man Relationship Specialty Start Date End Date William Ochoa MD PCP - General 01/07/17 09/23/22 documented as of this encounter
== END 2025-01-22 14:59 | disposition home or self-care (01) ==
PROVIDERS: Visit Provider Physician Assistant Medical
DX: R11.2 Nausea with vomiting, unspecified (principal); R19.7 Diarrhea, unspecified; R30.0 Dysuria; R05.1 Acute cough

== ENCOUNTER 2025-01-22 13:08 | Outpatient (REF) | payer OTHER, SELFPAY ==
[2025-01-22 17:41] LABS: Resp Syncy Virus RNA Qual PCR NEGATIVE (Negative); SARS COV2 PCR INHOUSE NEGATIVE (Negative)
== END 2025-01-22 13:09 | disposition home or self-care (01) ==
LOC: HO.LNP 13:08
PROVIDERS: Visit Provider Physician Assistant Medical
DX: R11.2 Nausea with vomiting, unspecified (principal); R19.7 Diarrhea, unspecified; R05.1 Acute cough; R09.89 Other specified symptoms and signs involving the circulatory and respiratory systems
CPT/HCPCS: 81003; 87637; 99212